=== PATIENT | female | born 1980 ===

== ENCOUNTER 2023-04-19 14:10 | Outpatient (CLI) | payer OTHER, SELFPAY ==
--- NOTE | ~2023-04-19 | MR_ITS ---
EXAMINATION: MR knee LT wo con DATE: 04/19/2023 14:51 INDICATION: Chronic left knee pain TECHNIQUE: Magnetic resonance imaging (MRI) of the left knee was performed without intravenous contra st. Sequences included coronal PD-weighted FSE, coronal PD-weighted FS FSE, sagittal T2-weighted FSE , sagittal PD-weighted FS FSE and axial PD weighted fat saturated FSE. COMPARISON: None. FINDINGS: Medial compartment: Medial meniscus is normal. Articular cartilage is normal. Lateral compartment: Lateral meniscus is normal. Articular cartilage is normal. Patellofemoral compartment: Deep chondral fissuring without degenerative subchondral changes at the central aspect of the patella r apical ridge and medial aspect of the lateral patellar facet. Deep chondral ulceration with mild un derlying subarticular cystlike changes at the inferior aspect of the trochlear groove and the lateral aspect of the medial trochlea. Ligaments and tendons: Anterior and posterior cruciate ligaments are normal. The medial collateral ligament and fibular kevin ateral ligament complex are normal. The extensor mechanism is normal. The visualized medial and later al hamstring tendons as well as the iliotibial band are normal. Fluid: Small to moderate-sized left knee joint effusion. No loose osteochondral bodies identified. Moderate size Cueto's cyst measuring 5.5 cm craniocaudally and 2.1 x 1.9 cm in maximal transaxial dimensions. Osseous/other: Bone alignment is normal. No fracture or pathologic marrow replacing process. IMPRESSION: 1. 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 2. Small to moderate-sized left knee joint effusion and moderate-sized Cueto's cyst. Reviewed, dictated and finalized at location A. IMPRESSION: 1. Mild patellofemoral osteoarthritis with small regions of moderate to high-gr everett patellar and trochlear chondromalacia. 2. Small to moderate-sized left knee joint effusion and moderate-sized Cueto's cyst.
== END 2023-04-19 14:11 ==
LOC: MICIMG 14:12
PROVIDERS: PCP Nurse Practitioner Family
DX: M17.12 Unilateral primary osteoarthritis, left knee (principal); M25.462 Effusion, left knee; M71.22 Synovial cyst of popliteal space [Baker], left knee
CPT/HCPCS: 73721

== ENCOUNTER 2024-04-14 08:42 | Outpatient (CLI) | payer OTHER, SELFPAY ==
--- NOTE | ~2024-04-14 | MR_ITS ---
EXAMINATION: MR ankle LT wo con DATE: 04/14/2024 09:28 INDICATION: Arthritis TECHNIQUE: Magnetic resonance imaging (MRI) of the left ankle was performed without intravenous contr ast. Sequences included sagittal, coronal, and axial proton-density weighted fast spin echo without a nd with fat saturation. COMPARISON: None. FINDINGS: Medial ankle ligaments: Deep and superficial deltoid ligaments as well as the spring ligament are normal. Lateral ankle ligaments: The anterior and posterior inferior tibiofibular ligaments are normal. The anterior talofibular, calc aneofibular and posterior talofibular ligaments are normal. Tendons: Achilles tendon is normal. Small amount of fluid signal extending along the peroneal tendon sheath co nsistent with mild tenosynovitis. There is moderate tendinopathy and longitudinal split tearing of th e peroneus brevis tendon. The peroneus longus tendon is normal. The tibialis anterior and extensor lobo llucis longus and extensor digitorum longus tendons are normal. The tibialis posterior, flexor digito rum longus and flexor hallucis longus tendons are normal. Plantar fascia: Mild increased signal associated with a fusiform region of thickening of the proximal central compone nt of the plantar aponeurosis without surrounding edema, most likely a plantar fibroma versus less li audra region of scarring related to a chronic partial tear. Bones/other: Small low signal intensity bone island in the medial cuneiform. Otherwise normal marrow signal with n o fracture, reactive edema or pathologic marrow replacing process. Mild osteoarthritis at the distal tibiofibular articulation. Remaining joint spaces appear relatively preserved. Fluid: Physiologic amount of fluid in the joint spaces. IMPRESSION: 1. Peroneal tenosynovitis with moderate tendinopathy and longitudinal split tear of the peroneus brev is tendon. 2. Small plantar fibroma versus less likely scarring related to chronic partial tear at the proximal central component of the plantar aponeurosis. Reviewed, dictated and finalized at location A. IMPRESSION: 1. Peroneal tenosynovitis with moderate tendinopathy and longitudinal split tea r of the peroneus brevis tendon. 2. Small plantar fibroma versus less likely scarring related to chronic partial tear at the proximal central component of the plantar aponeurosis.
== END 2024-04-14 08:43 ==
LOC: MICIMG 08:43
PROVIDERS: PCP Nurse Practitioner Family; Visit Provider Internal Medicine Rheumatology
DX: M13.172 Monoarthritis, not elsewhere classified, left ankle and foot (principal); M65.872 Other synovitis and tenosynovitis, left ankle and foot; M75.32 Calcific tendinitis of left shoulder; S96.812A Strain of other specified muscles and tendons at ankle and foot level, left foot, initial encounter; X58.XXXA Exposure to other specified factors, initial encounter
CPT/HCPCS: 73721